=== PATIENT | female | born 1975 | race Caucasian/White ===

== ENCOUNTER 2024-06-18 03:23 | Emergency (ER) | payer MEDICAID, SELFPAY ==
[2024-06-18 03:24] VITALS: BMI 42.1
[2024-06-18 03:28] VITALS: BP 135/79; PULSE 85; RESP 18; TEMP 36.9; O2SAT 100
--- NOTE | 2024-06-18 03:36 | EDNOTE_ITS ---
<Statement entered by Jacque Little MD - 06/24/24 17:48> As co-signing physician, I was present and available for consult prn. I concur with the plan and care as documented by the midlevel provider. ED Back Injury Pain RME/HPI General Chief Complaint: Back Pain/Injury Stated Complaint: LOWER BACK PAIN Time Seen by Provider: 06/18/24 03:24 Source: patient Arrival date/time: 06/18/24 03:23 49-year-old female presents emergency department complaining of lower back pain that is been ongoing for 2 days. Patient reports taking muscle relaxer and lidocaine patches at home for pain with no improvement. Patient Nuys any fever, chills, dysuria, flank pain, nausea vomiting, or any other associated symptoms. Mode of arrival: ambulatory Limitations: no limitations Related Data Home Medications ?Medication ?Instructions ?Recorded ?Confirmed NO HOME MEDS ##0 02/14/09 Previous Rx's ?Medication ?Instructions ?Recorded hydrocodone 5 mg-acetaminophen 325 1 tab PO BID PRN pain #10 tabs 08/06/23 mg tablet ibuprofen 800 mg tablet 800 mg PO TID PRN pain #30 tabs 08/06/23 cyclobenzaprine 10 mg tablet 10 mg PO TID PRN muscle spasm #10 06/18/24 tabs ibuprofen 600 mg tablet 600 mg PO Q8H PRN pain #20 tabs 06/18/24 Allergies Allergy/AdvReac Type Severity Reaction Status Date / Time No Known Allergies Allergy Unknown Uncoded 06/18/24 03:26 Review of Systems Review of Systems Systems Reviewed: All systems reviewed, normal except as documented Constitutional Constitutional: Reports system reviewed and no additional complaints, except as documented, Denies body ache(s), Denies chills and Denies fever(s) Eyes Eyes: Reports system reviewed and no additional complaints, except as documented and Denies change in vision ENT Ears, Nose, Mouth, and Throat: Reports system reviewed and no additional complaints, except as documented, Denies disequilibrium, Denies dizziness, Denies sore throat and Denies vertigo Cardiovascular Cardiovascular: Reports system reviewed and no additional complaints, except as documented, Denies chest pain and Denies dyspnea Respiratory Respiratory: Reports system reviewed and no additional complaints, except as d ocumented, Denies chest congestion, Denies cough and Denies dyspnea Gastrointestinal Gastrointestinal: Reports system reviewed and no additional complaints, except as documented, Denies abdominal pain, Denies nausea and Denies vomiting Musculoskeletal Musculoskeletal: Reports system reviewed and no additional complaints, except as documented, Denies abnormal gait, Denies arthralgias and Reports back pain Integumentary/Breasts Skin/Breast: Reports system reviewed and no additional complaints, except as documented, Denies erythema, Denies rash and Denies wounds Neurologic Neurologic: Reports system reviewed and no additional complaints, except as documented, Denies abnormal gait, Denies disequilibrium, Denies dizziness and Denies vertigo Past Medical History Past Medical History CARDIAC: Negative Congestive Heart Failure RESPIRATORY: Negative Chronic Obstructive Pulmonary Disease (COPD) GENITOURINARY: Negative Renal Disease ENDOCRINE: Negative Diabetes Mellitus Type 1 or Diabetes Mellitus Type 2 Social History SMOKING STATUS: Current every day smoker ED Exam General Limitations: Present no limitations General appearance: Present alert and in no apparent distress Head Head exam: Present atraumatic Eye Eye exam: Present normal appearance, PERRL and EOMI ENT ENT exam: Present normal exam, normal oropharynx and mucous membranes moist Neck Neck exam: Present normal inspection, full ROM and trachea midline Chest Chest inspection: Present normal inspection and symmetric chest wall rise Respiratory Respiratory exam: Present normal lung sounds bilaterally Cardiovascular Cardiovascular exam: Present regular rate, normal rhythm and normal heart sounds Abdominal Exam Abdominal exam: Present soft and normal bowel sounds Extremities Exam Extremities exam: Present normal inspection and full ROM Back Exam Back exam: Present normal inspection, full ROM, tenderness (Lower back), straight leg raise (R) and straight leg raise (L); Absent CVA tenderness (R) or CVA tenderness (L) Neurological Exam Neurological exam: Present alert, oriented X3 and CN II-XII intact Psychiatric Psychiatric exam: Present normal affect and normal mood Skin Skin exam: Present warm, dry, intact and normal color Course Quality Measures none Orders Category Date Time Status Urinalysis, C/S if Indicated Stat Lab 06/18/24 03:40 Completed CYCLObenzaPRINE [Flexeril] Med 06/18/24 03:36 Discontinued 10 mg PO X1 ONE Ketorolac Inj [Toradol Inj] Med 06/18/24 03:36 Discontinued 30 mg IM X1 ONE Vital Signs Vital signs: Vital Signs Temperature 98.4 F 06/18/24 03:28 Pulse Rate 85 06/18/24 03:28 Respiratory Rate 18 06/18/24 03:28 Blood Pressure 135/79 H 06/18/24 03:28 Pulse Oximetry (%) 100 06/18/24 03:28 Oxygen Delivery Method Room Air 06/18/24 03:28 100% room air within normal limits Back Pain / Injury MDM Narrative MDM Narrative:: 49-year-old female presents emergency department complaining of lower back pain that is been ongoing for 2 days. Patient reports taking muscle relaxer and lidocaine patches at home for pain with no improvement. Patient Nuys any fever, chills, dysuria, flank pain, nausea vomiting, or any other associated symptoms. Patient denies any bowel or bladder dysfunction. Urinalysis was unremarkable for any infection. Patient appears nontoxic and is hemodynamically stable. On exam no costovertebral angle tenderness. Positive right and left leg raise with pain consistent with sciatica. Patient discharged with muscle relaxer and pain medication instructed to follow- up with primary care provider and request referral to physical therapy or MRI of spine if symptoms persist. Patient data External records reviewed:: [facility] previous records Clinical information provided by:: patient Social determinants that could affect healthcare access:: none Patient has the following chronic illnesses:: See chart How is presenting disease/condition affected by chronic disease/condition?: uneffected by Evaluation data The following diagnostics were reviewed and interpreted by me:: lab results Lab and/or radiology exams considered but not ordered:: Ordered Interpretation Summary: Interpreted by me Medications / Prescriptions Medications or Prescriptions considered but not ordered:: Ordered Medication administrations:: Medication Administration History Discontinued Medications Cyclobenzaprine HCl (Cyclobenzaprine 5 Mg Tablet) 10 mg PO X1 ONE Stop: 06/18/24 03:37 Last Admin: 06/18/24 03:42 Dose: 10 mg Documented By: CVL Ketorolac Tromethamine (Ketorolac Inj 60 Mg/2 Ml Vial) 30 mg IM X1 ONE Stop: 06/18/24 03:37 Last Admin: 06/18/24 03:43 Dose: 30 mg Documented By: CVL Given Consultations Consultation(s) initiated? (list below): No Diagnosis Differential diagnosis back pain/injury: lumbar radiculopathy, sciatica, strain of lumbar region, renal colic, pyelonephritis, thoracic back pain, AAA and discitis Most likely diagnosis given after review of the tests above:: Sciatica Admission Indicated Admission indicated?: not indicated Admission Request Was there a request for admission?: No Disposition Plan Disposition Plan: Discharge Discharge Attestation Discharge Attestation: The patient and all family members were given an opportunity to ask questions and understood the discharge instructions. Discharge instructions specifically effects, indications for sooner follow up or return to the emergency department, and the expected course of current diagnosis. Patient condition: Stable Discharge Plan Plan Patient Disposition: HOME (Self Care) Disposition Comment: Stable Prescriptions/Referrals Prescriptions/Med Rec: New cyclobenzaprine 10 mg tablet 10 mg PO TID PRN (Reason: muscle spasm) Qty: 10 0RF ibuprofen 600 mg tablet 600 mg PO Q8H PRN (Reason: pain) Qty: 20 0RF No Action NO HOME MEDS Qty: 0 ibuprofen 800 mg tablet 800 mg PO TID PRN (Reason: pain) Qty: 30 0RF hydrocodone-acetaminophen 5-325 mg tablet 1 tab PO BID MDD 10 PRN (Reason: pain) Qty: 10 0RF Problem List Clinical Impression: Sciatica Patient/Caregiver Discharge Instructions Discharge Activity: activity as tolerated Education Materials: Anatomy of a Normal Spine, ED Sciatica Additional Instructions: Take medication as prescribed. Follow-up with primary care provider and request MRI of lower back or physical therapy if symptoms persist. Return to emergency department for any worsening symptoms or as needed. Print Language: Tamazight Stand Alone Forms: Amy Award Info., Patient Portal Info Letter PA/VINCENT Supervising Physician NEENA/VINCENT Supervising Physician: Dr. Little
[2024-06-18] MEDS: CYCLObenzaPRINE 5 MG TABLET 10 MG PO (03:42)
[2024-06-18] MEDS: KETOROLAC INJ 60 MG/2 ML VIAL 30 MG IM (03:43)
[2024-06-18 04:16] LABS: Collection Type, Urine Clean Catch
[2024-06-18 04:21] LABS: Bilirubin,Urine Negative (Negative); Blood,Urine Negative (Negative); Clarity,Urine Clear (Clear/Hazy); Color,Urine Lt-Yellow (Lt Yel-Yel); Culture Indicated,Urine Not Indicated; Glucose, Urine Negative (Negative); Ketones,Urine Negative (Negative); Leukocyte Esterase,Urine Negative (Negative); Nitrite,Urine Negative (Negative); Protein,Urine Negative (Neg - Trace); RBC,Urine 1 /hpf (0-3); Specific Gravity,Urine 1.024 (1.001-1.035); Squamous Epithelial Cell,Urine 12 /hpf (0-5); Urobilinogen,Urine Negative mg/dL (0.0-1.0); WBC,Urine 1 /hpf (0-5)
[2024-06-18 04:38] VITALS: RESP 18
== END 2024-06-18 04:38 | disposition home or self-care (01) ==
LOC: SERX 06:42
PROVIDERS: Emergency Provider Emergency Medicine; PCP Nurse Practitioner Family
DX: M54.40 Lumbago with sciatica, unspecified side (principal)
CPT/HCPCS: 81001; 96372; 99283; J1885; A9270

== ENCOUNTER 2024-07-09 04:10 | Emergency (ER) | payer MEDICAID, SELFPAY ==
[2024-07-09 04:10] VITALS: BMI 42.1
[2024-07-09 04:42] VITALS: BP 124/67; PULSE 88; RESP 17; TEMP 36.7; O2SAT 98
--- NOTE | 2024-07-09 04:48 | PD.EDURI ---
Upper Respiratory Inf. RME/HPI General Chief Complaint: Dental/Oral/Throat Stated Complaint: SORE THROAT Time Seen by Provider: 07/09/24 04:25 Source: patient Arrival date/time: 07/09/24 04:10 49-year-old female presents emergency department complaining of sore throat that started yesterday. Patient denies any other associated symptoms. Mode of arrival: ambulatory Limitations: no limitations Related Data Home Medications ?Medication ?Instructions ?Recorded ?Confirmed NO HOME MEDS ##0 02/14/09 Previous Rx's ?Medication ?Instructions ?Recorded hydrocodone 5 mg-acetaminophen 325 1 tab PO BID PRN pain #10 tabs 08/06/23 mg tablet ibuprofen 800 mg tablet 800 mg PO TID PRN pain #30 tabs 08/06/23 cyclobenzaprine 10 mg tablet 10 mg PO TID PRN muscle spasm #10 06/18/24 tabs ibuprofen 600 mg tablet 600 mg PO Q8H PRN pain #20 tabs 06/18/24 benzocaine 15 mg-menthol 2.6 mg 1 georgette PO TID PRN sore throat #16 ea 07/09/24 lozenges (Cepacol Sore Throat (benzocaine-menthol)) Allergies Allergy/AdvReac Type Severity Reaction Status Date / Time No Known Allergies Allergy Unknown Uncoded 06/18/24 03:26 Review of Systems Review of Systems Systems Reviewed: All systems reviewed, normal except as documented Constitutional Constitutional: Reports system reviewed and no additional complaints, except as documented, Denies body ache(s), Denies chills and Denies fever(s) Eyes Eyes: Reports system reviewed and no additional complaints, except as documented and Denies change in vision ENT Ears, Nose, Mouth, and Throat: Reports system reviewed and no additional complaints, except as documented, Denies disequilibrium, Denies dizziness, Reports sore throat and Denies vertigo Cardiovascular Cardiovascular: Reports system reviewed and no additional complaints, except as documented, Denies chest pain and Denies dyspnea Respiratory Respiratory: Reports system reviewed and no additional complaints, except as documented, Denies chest congestion, Denies cough and Denies dyspnea Gastrointestinal Gastrointestinal: Reports system reviewed and no additional complaints, except as documented, Denies abdominal pain, Denies nausea and Denies vomiting Musculoskeletal Musculoskeletal: Reports system reviewed and no additional complaints, except as documented, Denies abnormal gait and Denies arthralgias Integumentary/Breasts Skin/Breast: Reports system reviewed and no additional complaints, except as documented, Denies erythema, Denies rash and Denies wounds Neurologic Neurologic: Reports system reviewed and no additional complaints, except as documented, Denies abnormal gait, Denies disequilibrium, Denies dizziness and Denies vertigo Past Medical History Past Medical History CARDIAC: Negative Congestive Heart Failure RESPIRATORY: Negative Chronic Obstructive Pulmonary Disease (COPD) GENITOURINARY: Negative Renal Disease ENDOCRINE: Negative Diabetes Mellitus Type 1 or Diabetes Mellitus Type 2 Social History SMOKING STATUS: Current some day smoker ED Exam General Limitations: Present no limitations General appearance: Present alert and in no apparent distress Head Head exam: Present atraumatic Eye Eye exam: Present normal appearance, PERRL and EOMI ENT ENT exam: Present normal exam, normal oropharynx and mucous membranes moist Expanded ENT Exam Mouth exam: Absent drooling or trismus Throat exam: Present tonsillar erythema; Absent tonsillomegaly or tonsillar exudate Neck Neck exam: Present normal inspection, full ROM and trachea midline Chest Chest inspection: Present normal inspection and symmetric chest wall rise Respiratory Respiratory exam: Present normal lung sounds bilaterally Cardiovascular Cardiovascular exam: Present regular rate, normal rhythm and normal heart sounds Abdominal Exam Abdominal exam: Present soft and normal bowel sounds Extremities Exam Extremities exam: Present normal inspection and full ROM Back Exam Back exam: Present normal inspection and full ROM Neurological Exam Neurological exam: Present alert, oriented X3 and CN II-XII intact Psychiatric Psychiatric exam: Present normal affect and normal mood Skin Skin exam: Present warm, dry, intact and normal color Course Quality Measures none Orders Category Date Time Status Bedside Influenza A&B Antigen Test NOW Care 07/09/24 04:46 Active Strep A Rapid Stat Lab 07/09/24 04:46 Ordered Vital Signs Vital signs: Vital Signs Temperature 98.1 F 07/09/24 04:42 Pulse Rate 88 07/09/24 04:42 Respiratory Rate 17 07/09/24 04:42 Blood Pressure 124/67 07/09/24 04:42 Pulse Oximetry (%) 98 07/09/24 04:42 Oxygen Delivery Method Room Air 07/09/24 04:42 98% room air within normal limits Upper Respiratory Infection MDM Narrative MDM Narrative:: 49-year-old female presents emergency department complaining of sore throat that started yesterday. Patient denies any other associated symptoms. No adventitious lung sounds on auscultation. Patient not appear to be in any respiratory distress. Influenza and strep swabs were negative. Patient appears nontoxic and hemodynamically stable. Patient discharged ducted to follow-up with primary care provider and return to emergency department for any worsening symptoms or as needed. Patient data External records reviewed:: [facility] previous records Clinical information provided by:: patient Social determinants that could affect healthcare access:: none Patient has the following chronic illnesses:: See chart How is presenting disease/condition affected by chronic disease/condition?: uneffected by Evaluation data The following diagnostics were reviewed and interpreted by me:: lab results Lab and/or radiology exams considered but not ordered:: Ordered Interpretation Summary: Interpreted by me Medications / Prescriptions Medications or Prescriptions considered but not ordered:: N/A Medication administrations:: N/A Consultations Consultation(s) initiated? (list below): No Diagnosis Upper Respiratory Differential Diagnosis: upper respiratory infection, otitis media, sinusitis, viral infection, bronchitis, influenza and pharyngitis Most likely diagnosis given after review of the tests above:: Viral infection Admission Indicated Admission indicated?: not indicated Admission Request Was there a request for admission?: No Disposition Plan Disposition Plan: Discharge Discharge Attestation Discharge Attestation: The patient and all family members were given an opportunity to ask questions and understood the discharge instructions. Discharge instructions specifically effects, indications for sooner follow up or return to the emergency department, and the expected course of current diagnosis. Patient condition: Stable Discharge Plan Plan Patient Disposition: HOME (Self Care) Disposition Comment: Stable Prescriptions/Referrals Prescriptions/Med Rec: New Cepacol Sore Throat (sam-men) 15-2.6 mg lozenge 1 georgette PO TID PRN (Reason: sore throat) Qty: 16 0RF No Action NO HOME MEDS Qty: 0 ibuprofen 800 mg tablet 800 mg PO TID PRN (Reason: pain) Qty: 30 0RF hydrocodone-acetaminophen 5-325 mg tablet 1 tab PO BID MDD 10 PRN (Reason: pain) Qty: 10 0RF cyclobenzaprine 10 mg tablet 10 mg PO TID PRN (Reason: muscle spasm) Qty: 10 0RF ibuprofen 600 mg tablet 600 mg PO Q8H PRN (Reason: pain) Qty: 20 0RF Referrals: Temporary Provider,ED [Primary Care Provider] - In 1 week Problem List Clinical Impression: Viral infection Patient/Caregiver Discharge Instructions Discharge Activity: activity as tolerated Education Materials: ED Viral Syndrome (Adult) Additional Instructions: Strep swab negative. Drink plenty of fluids and stay hydrated. Use lozenge as needed. Warm water salt gargles as needed. Follow-up with primary care provider in 2 to 3 days. Return to emergency department for any worsening symptoms or as needed. Print Language: Telugu Stand Alone Forms: Amy Award Info., Patient Portal Info Letter PA/[employer] Supervising Physician PA/[employer] Supervising Physician: Dr. Amin
[2024-07-09 05:08] LABS: Strep A Rapid Negative (Negative)
[2024-07-09 05:19] VITALS: BP 122/70; PULSE 76; RESP 16; TEMP 36.7; O2SAT 98
== END 2024-07-09 05:19 | disposition home or self-care (01) ==
LOC: SERX 06:05
PROVIDERS: Emergency Provider Emergency Medicine; PCP Nurse Practitioner Family
DX: B34.9 Viral infection, unspecified (principal)
CPT/HCPCS: 87400; 87651; 99283